=== PATIENT | female | born 1995 | race Hispanic/Latino ===

== ENCOUNTER 2023-09-17 22:04 | Day surgery (SDC) | payer OTHER ==
[2023-09-17 22:41] VITALS: BMI 36.3
[2023-09-17] MEDS ORDERED: Calcium Carbonate 500 MG ChewTAB PO PRN (22:50)
[2023-09-18 00:34] LABS: Hematocrit 32.8 % (34.9-44.5); Hemoglobin 10.8 g/dL (12.0-15.5); Mean Corpuscular HGB CONC 32.9 g/dL (32.0-36.0); Mean Corpuscular Hemoglobin 27.6 pg (27.0-33.0); Mean Corpuscular Volume 83.7 fl (81.6-98.3); Mean Platelet Volume 11.9 fl (7.4-10.4); Platelet Count 295 10x3/uL (150-450); Red Blood Cell (RBC) Count 3.92 10x6/uL (3.90-5.03); White Blood Cell (WBC) Count 12.6 10x3/uL (3.5-10.5)
[2023-09-18 00:37] LABS: MDiff Complete? YES
[2023-09-18 00:38] LABS: ALT (SGPT) 19 U/L (8-55); AST (SGOT) 18 U/L (5-34); Albumin 3.1 g/dL (3.5-5.0); Alkaline Phosphatase 178 U/L (40-110); Anion Gap 13 mmol/L (10-20); BUN (Urea Nitrogen) 13 mg/dL (7.0-18.7); Bilirubin, Total 0.2 mg/dL (0.2-1.2); Calc. Creatinine Clearance 186 mL/min (70-130); Carbon Dioxide 22 mmol/L (22-29); Chloride 107 mmol/L (98-107); Estimated GFR 122; Globulin 3.7 g/dL (2.4-3.5); Glucose 86 mg/dL (70-105); Potassium 4.2 mmol/L (3.5-5.1); Protein, Total 6.8 g/dL (6.0-8.3); Sodium 138 mmol/L (136-145)
[2023-09-18 01:25] LABS: Creatinine, Urine 129.4 mg/dL (47-110)
[2023-09-18 01:28] LABS: Platelet Adequacy Comment Appears Adequate
[2023-09-18 01:29] LABS: Microcytosis SLIGHT = 6-15 cells (100X) (0-5/hpf)
[2023-09-18 01:30] LABS: Band 6 % (5-11); Eosinophils 1 % (0-10); Lymphocytes 27 % (21-51); Monocytes 7 % (0-10); Neutrophil 59 % (42-75)
== END 2023-09-18 01:44 | disposition home or self-care (01) ==
LOC: CSHLD/OP 22:04
PROVIDERS: ATTEND Obstetrics & Gynecology
DX: O99.891 Other specified diseases and conditions complicating pregnancy (principal); R03.0 Elevated blood-pressure reading, without diagnosis of hypertension; O24.419 Gestational diabetes mellitus in pregnancy, unspecified control; O99.343 Other mental disorders complicating pregnancy, third trimester; F41.9 Anxiety disorder, unspecified; F32.A Depression, unspecified; O99.213 Obesity complicating pregnancy, third trimester; E66.9 Obesity, unspecified; O99.013 Anemia complicating pregnancy, third trimester; Z3A.38 38 weeks gestation of pregnancy
CPT/HCPCS: 36415; 80053; 82570; 84156; 85025

== ENCOUNTER 2023-09-19 14:27 | Inpatient (IN) | payer OTHER ==
[~2023-09-19 14:27] MED LIST: Bupivacaine 0.25% HCL 30 ML VIAL ONE; Bupivacaine PF 0.5% 30 ML VIAL ONE; ePHEDrine 50 MG/ML VIAL ONE
[2023-09-19 15:02] VITALS: BMI 36.3
[2023-09-19 15:33] LABS: Fetal Membranes Rupture RUPTURE DETECTED (No Rupture)
[2023-09-19] MEDS ORDERED: Ondansetron PF 4 MG/2 ML Vial IVP PRN ×2 (16:07→21:03)
[2023-09-19] MEDS ORDERED: hydrALAZINE 20 MG/ML VIAL SLOW IVP PRN (16:07)
[2023-09-19] MEDS ORDERED: Promethazine HCl 25 MG/ML VIAL IM PRN ×2 (16:07→21:03)
[2023-09-19] MEDS ORDERED: Lidocaine 1% (PF) 30 ML VIAL SC PRN (16:07)
[2023-09-19] MEDS ORDERED: Docusate 100 MG CAP PO PRN (16:08)
[2023-09-19] MEDS ORDERED: Acetaminophen 500 MG TAB PO PRN (16:08)
[2023-09-19] MEDS ORDERED: Oxytocin 30 units/NS 500 ML 500 ML IV SCH ×2 (16:15)
[2023-09-19 16:52] LABS: #Eosinphils 0.1 10x3/uL (0.0-0.5); #Monocytes 0.6 10x3/uL (0.0-1.1); #Neutrophils 11.8 10x3/uL (1.5-8.4); %Basophils 0.2 % (0.0-2.0); %Eosinophils 0.3 % (0.0-6.0); %Lymphocytes 16.5 % (18.0-47.0); %Monocytes 4.1 % (0.0-10.0); %Neutrophils 77.5 % (40.0-75.0); Hematocrit 35.5 % (34.9-44.5); Hemoglobin 11.8 g/dL (12.0-15.5); Mean Corpuscular HGB CONC 33.2 g/dL (32.0-36.0); Mean Corpuscular Hemoglobin 27.6 pg (27.0-33.0); Mean Corpuscular Volume 82.9 fl (81.6-98.3); Mean Platelet Volume 12.3 fl (7.4-10.4); Platelet Count 302 10x3/uL (150-450); RBC Distribution Width 15.1 % (11.5-14.5); Red Blood Cell (RBC) Count 4.28 10x6/uL (3.90-5.03); White Blood Cell (WBC) Count 15.2 10x3/uL (3.5-10.5)
[2023-09-19 17:10] LABS: Creatinine, Urine 87.29 mg/dL (47-110)
[2023-09-19 17:12] LABS: ALT (SGPT) 19 U/L (8-55); AST (SGOT) 20 U/L (5-34); Albumin 3.4 g/dL (3.5-5.0); Alkaline Phosphatase 217 U/L (40-110); Anion Gap 17 mmol/L (10-20); BUN (Urea Nitrogen) 10 mg/dL (7.0-18.7); Bilirubin, Total 0.4 mg/dL (0.2-1.2); Calc. Creatinine Clearance 213 mL/min (70-130); Calcium 9.4 mg/dL (7.8-10.44); Carbon Dioxide 16 mmol/L (22-29); Chloride 106 mmol/L (98-107); Estimated GFR 126; Globulin 3.2 g/dL (2.4-3.5); Glucose 79 mg/dL (70-105); Potassium 4.1 mmol/L (3.5-5.1); Protein, Total 6.6 g/dL (6.0-8.3); Sodium 135 mmol/L (136-145)
[2023-09-19 17:31] LABS: HBSAg Index 0.17 S/CO (0-0.99); Hep B Surf Ag - L&D Non-Reactive S/CO (NonReactive)
[2023-09-19 17:32] LABS: Syphilis Antibody Nonreactive (Nonreactive); Syphilis Antibody Index 0.04 S/CO (<1.00 Non-Reactive)
[2023-09-19] MEDS: Calcium Carbonate 500 MG ChewTAB PO PRN (17:37)
[2023-09-19] MEDS: Lactated Ringer's 1,000 ML IV SCH (17:37)
[2023-09-19] MEDS ORDERED: fentaNYL/Ropivacaine Epidural 100 ML ONE (20:23)
[2023-09-19] MEDS ORDERED: ePHEDrine Sulfate 50 MG/10 ML VIAL SLOW IVP PRN (21:03)
[2023-09-19] MEDS ORDERED: Moisturizing Cream (Eucerin) 113 GM JAR TOP PRN (21:03)
[2023-09-19] MEDS ORDERED: Naloxone HCl 0.4 mg/ml Vial IVP PRN ×2 (21:03)
[2023-09-19] MEDS ORDERED: Lactated Ringer's 500 ML IV PRN (21:03)
[2023-09-19] MEDS ORDERED: diphenhydrAMINE 50 MG/ML VIAL IVP PRN (21:03)
[2023-09-19] MEDS ORDERED: Acetaminophen 325 MG TAB PO PRN (21:03)
[2023-09-19] MEDS ORDERED: Communication Order-Pharmacy FS SCH (21:15)
[2023-09-19] MEDS ORDERED: fentaNYL 2 mcg/Ropivacaine 0.2% Epidural 100 ML CADD EPIDURAL SCH (21:15)
[2023-09-20] MEDS: Calcium Carbonate 500 MG ChewTAB PO PRN (01:33)
[2023-09-20] MEDS ORDERED: fentaNYL/Ropivacaine Epidural 100 ML ONE (06:43)
[2023-09-20] MEDS ORDERED: CEFAZOLIN 2 GM VIAL ONE (08:17)
[2023-09-20] MEDS ORDERED: Boostrix 0.5 ML (Tdap) VIAL (>/=7 yrs of age) IM ONE (12:37)
[2023-09-20] MEDS ORDERED: Bisacodyl 10 MG SUPP PR PRN (12:37)
[2023-09-20] MEDS ORDERED: Milk Of Magnesia 30 ML UDCUP PO PRN (12:37)
[2023-09-20] MEDS ORDERED: hydrALAZINE 20 MG/ML VIAL SLOW IVP PRN (12:37)
[2023-09-20] MEDS: Ibuprofen 800 MG TAB PO SCH ×2 (12:51→20:28)
[2023-09-20] MEDS ORDERED: CEFAZOLIN 2 GM in Sodium Chloride 0.9% 100 ML IVPB SCH (14:00)
[2023-09-20] MEDS: Ferrous Sulfate 325 MG TAB PO SCH (17:35)
[2023-09-20] MEDS: Lactated Ringer's 1,000 ML IV SCH (19:03)
[2023-09-20] MEDS: Docusate 100 MG CAP PO SCH (20:28)
[2023-09-21 04:33] LABS: #Eosinphils 0.1 10x3/uL (0.0-0.5); #Monocytes 0.9 10x3/uL (0.0-1.1); #Neutrophils 12.9 10x3/uL (1.5-8.4); %Basophils 0.2 % (0.0-2.0); %Eosinophils 0.7 % (0.0-6.0); %Lymphocytes 19.9 % (18.0-47.0); %Monocytes 4.9 % (0.0-10.0); %Neutrophils 73.2 % (40.0-75.0); Hematocrit 29.2 % (34.9-44.5); Hemoglobin 9.5 g/dL (12.0-15.5); Mean Corpuscular HGB CONC 32.5 g/dL (32.0-36.0); Mean Corpuscular Hemoglobin 27.2 pg (27.0-33.0); Mean Corpuscular Volume 83.7 fl (81.6-98.3); Mean Platelet Volume 12.1 fl (7.4-10.4); Platelet Count 244 10x3/uL (150-450); RBC Distribution Width 15.1 % (11.5-14.5); Red Blood Cell (RBC) Count 3.49 10x6/uL (3.90-5.03); White Blood Cell (WBC) Count 17.6 10x3/uL (3.5-10.5)
[2023-09-21] MEDS: Ibuprofen 800 MG TAB PO SCH ×2 (06:32→13:43)
[2023-09-21] MEDS: Docusate 100 MG CAP PO SCH (08:30)
[2023-09-21] MEDS: Ferrous Sulfate 325 MG TAB PO SCH (08:30)
[2023-09-21 11:26] VITALS: BP 116/65; TEMP 97.9
== END 2023-09-21 19:00 | disposition home or self-care (01) | DRG 806 ==
LOC: CSHLD/OP 14:27 → CSHLD 15:53 → CSHPP 09-20 13:34
PROVIDERS: ADMIT Obstetrics & Gynecology; ATTEND Obstetrics & Gynecology
PROC: 10E0XZZ Delivery of Products of Conception, External Approach (ICD-10-PCS; principal; 2023-09-20)
PROC: 10H07YZ Insertion of Other Device into Products of Conception, Via Natural or Artificial Opening (ICD-10-PCS; 2023-09-20)
PROC: 0UQG7ZZ Repair Vagina, Via Natural or Artificial Opening (ICD-10-PCS; 2023-09-20)
PROC: 3E033XZ Introduction of Vasopressor into Peripheral Vein, Percutaneous Approach (ICD-10-PCS; 2023-09-20)
DX: O42.02 Full-term premature rupture of membranes, onset of labor within 24 hours of rupture (principal); O71.4 Obstetric high vaginal laceration alone; Z37.0 Single live birth; O24.429 Gestational diabetes mellitus in childbirth, unspecified control; Z3A.38 38 weeks gestation of pregnancy
CPT/HCPCS: 36415; 36416; 80053; 82570; 84112; 84156; 85025; 86780; 86850; 86900; 86901; 87340; J2405; J2590; J3490; J7120; S0020